=== PATIENT | female | born 1965 | race Caucasian/White ===

== ENCOUNTER → 2017-12-01 | Outpatient (CLI) | payer BC, MEDICARE ==
[~2017-12-01] MED LIST: ALLERGY MED; ALLOPURINOL 30300 M2 PO; B-12 PO; FENTANYL1 EAC2 TD; FISH OIL 1,001000 M2 PO; GINKGO BILOBA120 MG PO; HYDROCODON-ACE1 EA10 PO; HYDROCODON-ACE1 EACH PO; IBUPROFEN 600600 M1 PO; IMITREX; IMITREX 50 MG T50 M1 PO; LEVOTHYROXIN0.125 M1 PO; LEVOXYL150 MCG PO; METHADONE HCL5 MG PO; MIRALAX17 GM PO; MOBIC15 MG PO; MULTIVITAMINS PO; NEURONTIN 300M300 M2 PO; PROZAC 20 MG20 M1 PO; RELAFEN750 MG PO; SAVELLA50 MG PO; TOPAMAX25 M1 PO; VALIUM10 MG; VENLAFAXIN75 MG/1 T2 PO; VENLAFAXINE PO; VICODIN ES TAB1 EACH; VITAMIN D35000 UNI1 PO; VITAMIN D400 UNI1 PO; WELCHOL 625 MG625 M1 PO; ZANAFLEX2 M1 PO; ZANAFLEX4 M1 PO; ZANAFLEX4 MG PO
== END ==
LOC: M.RAD 09:32
DX: Z12.31 Encounter for screening mammogram for malignant neoplasm of breast (principal)

== ENCOUNTER → 2019-01-21 | Outpatient (CLI) | payer BC, MEDICARE | LOC: M.ULTRA 01-14 07:30 | DX: Z13.6 Encounter for screening for cardiovascular disorders (principal); E03.9 Hypothyroidism, unspecified ==

== ENCOUNTER → 2020-07-27 | Outpatient (CLI) | payer MEDICARE | LOC: M.NUC 07-17 16:07 → M.RAD 10:33 → M.NUC 11:30 | PROVIDERS: ATTEND Family Medicine | DX: Z12.31 Encounter for screening mammogram for malignant neoplasm of breast (principal); E04.1 Nontoxic single thyroid nodule; Z78.0 Asymptomatic menopausal state ==

== ENCOUNTER → 2020-08-10 | Outpatient (CLI) | payer MEDICARE | LOC: M.ULTRA 12:54 | PROVIDERS: ATTEND Family Medicine | DX: E04.1 Nontoxic single thyroid nodule (principal); M79.10 Myalgia, unspecified site ==